=== PATIENT | male | born 1990 | race African-American/Black ===

== ENCOUNTER 2017-07-21 13:31 | Emergency (ER) | payer OTHER ==
[~2017-07-21] VITALS: Ht 180.3 cm; Wt 113.4 kg
[2017-07-21 14:57] LABS: INFLUENZA A ANTIGEN None Detected (None Detect)
[2017-07-21] MEDS ORDERED: PROMETHAZINE-D118 ML PO (15:06)
[2017-07-21] MEDS ORDERED: TESSALON PERLE100 MG PO (15:06)
[2017-07-21 15:10] VITALS: BP 146/105
== END 2017-07-21 15:11 | disposition home or self-care (01) ==
LOC: M.ERS 13:31
PROVIDERS: Physician Assistant
DX: J10.1 Influenza due to other identified influenza virus with other respiratory manifestations (principal)